=== PATIENT | female | born 1970 | race Two or more races ===

== ENCOUNTER 2017-06-25 18:23 | Emergency (ER) | payer OTHER ==
[~2017-06-25] VITALS: Ht 162.6 cm; Wt 158.8 kg
[2017-06-25 18:48] VITALS: BP 136/92
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
[2017-06-25] MEDS ORDERED: TRAM50TA PO (20:10)
[2017-06-25] MEDS ORDERED: CYCL10TA2 PO (20:10)
== END 2017-06-25 20:37 | disposition home or self-care (01) ==
LOC: ER 18:23
DX: S16.1XXA Strain of muscle, fascia and tendon at neck level, initial encounter (principal); E66.9 Obesity, unspecified; Z68.44 Body mass index [BMI] 60.0-69.9, adult; V43.52XA Car driver injured in collision with other type car in traffic accident, initial encounter; Y93.I9 Activity, other involving external motion; Y92.410 Unspecified street and highway as the place of occurrence of the external cause; Y99.8 Other external cause status
CPT/HCPCS: 72125; 99284-25